=== PATIENT | male | born 1960 | race African-American/Black ===

== ENCOUNTER 2025-02-13 10:45 | Emergency (ER) | payer OTHER ==
[~2025-02-13] VITALS: Ht 182.9 cm; Wt 87.0 kg
[2025-02-13 11:10] VITALS: O2SAT 98
[2025-02-13 12:57] LABS: BASOPHILS % 0.6 % (0.0-2.0); EOSINOPHILS % 0.1 % (0.0-5.0); HEMATOCRIT. 42.3 % (42.0-52.0); HEMOGLOBIN. 13.9 g/dL (14.0-18.0); LYMPHOCYTES % 7.5 % (20.0-50.0); MEAN PLATELET VOLUME 9.7 fl (7.4-10.4); MONOCYTES % 5.5 % (2.0-8.0); NEUTROPHILS % 86.3 % (40.0-76.0); PLATELET 206 x1000/uL (130-400); RED BLOOD CELL COUNT 4.98 mill/uL (4.7-6.1); RED CELL DISTRIBUTION WIDTH 14.1 % (11.6-14.6)
[2025-02-13 13:11] LABS: CREATININE 1.2 mg/dL (0.6-1.3); TROPONIN I HIGH SENSITIVITY 4 ng/L (3.0-53); UREA NITROGEN BLOOD 9 mg/dL (9-23)
[2025-02-13 13:13] LABS: ASPARTATE AMINOTRANSFERASE 20 IU/L (<34); BILIRUBIN DIRECT 0.3 mg/dL (<=3.0); BILIRUBIN TOTAL 1.0 mg/dL (0.1-1.0); PHOSPHORUS 2.4 mg/dL (2.5-4.9); PROTEIN TOTAL 7.8 g/dL (6.0-8.3)
[2025-02-13 13:26] LABS: INR 1.0
[2025-02-13] MEDS: MECLIZINE 25MG TABLET PO ONE (15:46)
[2025-02-13] MEDS: DIPHENHYDRAMINE 25MG CAPSULE PO ONE (15:46)
[2025-02-13] MEDS: METOCLOPRAMIDE HCL 10MG TABLET PO ONE (15:46)
[2025-02-13] MEDS ORDERED: MECL-299 MT (16:15)
[2025-02-13 16:41] VITALS: BP 160/72; PULSE 62; RESP 16; TEMP 37; O2SAT 100
== END 2025-02-13 16:42 | disposition home or self-care (01) ==
LOC: ER 10:45
DX: R42 Dizziness and giddiness (principal); I10 Essential (primary) hypertension; E78.00 Pure hypercholesterolemia, unspecified; Z98.890 Other specified postprocedural states
CPT/HCPCS: 99285; 70450; 71045; 80076; 80048; 83880; 83690; 83735; 84100; 85025; 85610; 84484; 36415; 93005; Q0163; J8597 ×2